=== PATIENT | male | born 1995 | race American Indian/Alaskan Native ===

== ENCOUNTER 2021-01-06 11:07 | Emergency (ER) | payer SELFPAY ==
[2021-01-06 11:27] VITALS: BP 144/83
--- NOTE | 2021-01-06 12:12 | XRay Report ---
XR shoulder 2+V RT INDICATION / CLINICAL INFORMATION: right shoulder pain COMPARISON: None available. FINDINGS: BONES / JOINT(S): No acute fracture or subluxation. No significant arthritis. SOFT TISSUES: No significant abnormality. ADDITIONAL FINDINGS: None. IMPRESSION: No acute osseous findings in the right shoulder. Signer Name: Med Segovia MD Signed: 01/06/2021 12:07 PM Workstation Name: [id number]
--- NOTE | 2021-01-06 12:49 | Emergency Department Report ---
ED Upper Extremity Inj HPI - General Chief Complaint: Shoulder Injury Stated Complaint: SHOULDER INJURY Time Seen by Provider: 01/06/21 11:35 Source: patient Mode of arrival: Ambulatory Limitations: No Limitations - History of Present Illness Initial Comments: This is a [age]jir[age]-old male nontoxic, well nourished in appearance, no acute signs of distress presents to the ED with c/o of acute on chronic intermittent right shoulder pain 10 years. Patient stated that was heavy lifting and developed pains. Patient denies any acute injuries or trauma. Stated 10 years ago dislocated shoulder and since then has intermittent pains. Patient denies any numbness, tingling, fever, chills, nausea, vomiting, chest pain, shortness of breath, headache, stiff neck. Patient denies any joint swelling or joint redness. Patient denies decreased range of motion but has some pain. Patient denies any allergies or significant past medical history. MD Complaint: Injury to:: right, shoulder Other Extremity Injury: Shoulder: Right Severity scale (0 -10): 8 Improves With: immobilization Worsens With: movement of extremity Associated Symptoms: denies other symptoms. denies: weakness, numbness, neck p ain, suspects foreign body, nausea/vomiting, heard/felt popping sensat - Related Data Previous Rx's Medication Instructions Recorded Last Taken Type Naproxen 500 mg PO Q12H PRN #12 tablet 01/06/21 Unknown Rx ED Review of Systems ROS: Stated complaint: SHOULDER INJURY Other details as noted in HPI Comment: All other systems reviewed and negative Constitutional: denies: chills, fever Eyes: denies: eye pain, eye discharge, vision change ENT: denies: ear pain, throat pain Respiratory: denies: cough, shortness of breath, wheezing Cardiovascular: denies: chest pain, palpitations Endocrine: no symptoms reported Gastrointestinal: denies: abdominal pain, nausea, diarrhea Genitourinary: denies: urgency, dysuria Musculoskeletal: denies: back pain, joint swelling, arthralgia Skin: denies: rash, lesions Neurological: denies: headache, weakness, paresthesias Psychiatric: denies: anxiety, depression Hematological/Lymphatic: denies: easy bleeding, easy bruising ED Past Medical Hx - Past Medical History Previous Medical History?: Yes Hx Asthma: Yes - Surgical History Past Surgical History?: No - Social History Smoking Status: Never Smoker Substance Use Type: None - Medications Home Medications: Home Medications Medication Instructions Recorded Confirmed Last Taken Type Naproxen 500 mg PO Q12H PRN #12 tablet 01/06/21 Unknown Rx ED Physical Exam - General Limitations: No Limitations General appearance: alert, in no apparent distress - Head Head exam: Present: atraumatic, normocephalic - Eye Eye exam: Present: normal appearance - Neck Neck exam: Present: normal inspection, full ROM. Absent: lymphadenopathy - Respiratory Respiratory exam: Absent: respiratory distress - Cardiovascular Cardiovascular Exam: Present: regular rate - Extremities Exam Extremities exam: Present: normal inspection, full ROM, normal capillary refill. Absent: tenderness, joint swelling - Expanded Upper Extremity Exam Right General: Present: normal inspection Shoulder Exam: Present: normal inspection, full ROM (with some pain). Absent: tenderness, swelling, abrasion, laceration, ecchymosis, deformity, crepidus, dislocation, erythema, tenderness over AC joint Upper Arm exam: Present: normal inspection, full ROM. Absent: tenderness, swelling Elbow exam: Present: normal inspection, full ROM. Absent: tenderness, swelling Forearm Wrist exam: Present: normal inspection, full ROM. Absent: tenderness, swelling Hand Wrist exam: Present: normal inspection, full ROM. Absent: tenderness, swelling Vascular: Present: normal capillary refill. Absent: vascular compromise (Neurovascular within normal limits) - Back Exam Back exam: Present: normal inspection, full ROM. Absent: tenderness, CVA tenderness (R), CVA tenderness (L), muscle spasm, paraspinal tenderness, vertebral tenderness, rash noted - Neurological Exam Neurological exam: Present: alert, oriented X3, normal gait - Psychiatric Psychiatric exam: Present: normal affect, normal mood - Skin Skin exam: Present: warm, dry, intact, normal color. Absent: rash ED Course Vital Signs 01/06/21 11:22 Temperature 98.9 F Pulse Rate 77 Respiratory 20 Rate Blood Pressure 144/83 Blood Pressure 144/83 [Right] O2 Sat by Pulse 99 Oximetry - Reevaluation(s) Reevaluation #1: 01/06/21 12:49 Patient is speaking in full sentences with no signs of distress noted. ED Medical Decision Making - Radiology Data [facility] [address] [place] [address] XRay Report Signed Patient: MARQUIS BROOKE BETH MR#: [id number] : 1995 Acct:[id number] Age/Sex: 25 / M ADM Date: 01/06/21 Loc: ED Attending Dr: Ordering Physician: ABBY PRATHER NP Date of Service: 01/06/21 Procedure(s): XR shoulder 2+V RT Accession Number(s): [id number] cc: ABBY PRATHER NP Fluoro Time In Minutes: XR shoulder 2+V RT INDICATION / CLINICAL INFORMATION: right shoulder pain COMPARISON: None available. FINDINGS: BONES / JOINT(S): No acute fracture or subluxation. No significant arthritis. SOFT TISSUES: No significant abnormality. ADDITIONAL FINDINGS: None. IMPRESSION: No acute osseous findings in the right shoulder. Signer Name: Breanne Segovia MD Signed: 01/06/2021 12:07 PM Workstation Name: [email or web address] Transcribed By: GILMAR Dictated By: BREANNE SEGOVIA MD Electronically Authenticated By: BREANNE SEGOVIA MD Signed Date/Time: 01/06/21 120 DD/ 05 TD/TT: - Medical Decision Making This is a 25-year-old male that presents with right shoulder strain. Patient is stable and was examined by me. I referred patient to an orthopedic doctor for further evaluation for possible MRI. X-ray has been obtained and dictated by the radiologist. Patient is notified of the x-ray report with noted by the patient. Patient does have normal ROM with some pain and no joint swelling. No ecchymosis. no joint redness or swelling. Not warm to touch. No signs of cellulites present. Patient was instructed to RICE therapy. Patient is discharged with Motrin. At time of discharge, the patient does not seem toxic or ill in appearance. No acute signs of distress noted. Patient agrees to discharge treatment plan of care. No further questions noted by the patient. Critical care attestation.: If time is entered above; I have spent that time in minutes in the direct care of this critically ill patient, excluding procedure time. ED Disposition Clinical Impression: Right shoulder strain Qualifiers: Encounter type: initial encounter Qualified Code(s): S46.911A - Strain of unspecified muscle, fascia and tendon at shoulder and upper arm level, right arm, initial encounter Disposition: 01 HOME / SELF CARE / HOMELESS Is pt being admited?: No Does the pt Need Aspirin: No Condition: Stable Instructions: RICE Therapy for Routine Care of Injuries, [id number]-Sgey Additional Instructions: Follow-up with a orthopedic doctor in 3-5 days or if symptoms worsen and continue return to emergency room as soon as possible. No physical activity that extremity until cleared by orthopedic doctor Prescriptions: Naproxen 500 mg PO Q12H PRN #12 tablet PRN Reason: Pain , Severe (7-10) Referrals: PRIMARY CAREMD [Referring] - 3-5 Days COLEMAN LIMA MD [Staff Physician] - 3-5 Days Forms: Work/School Release Form(ED) Time of Disposition: 12:54
== END 2021-01-06 13:00 | disposition left against medical advice (07) ==
LOC: ED 11:07
DX: S46.911A Strain of unspecified muscle, fascia and tendon at shoulder and upper arm level, right arm, initial encounter (principal); J45.909 Unspecified asthma, uncomplicated; Z79.899 Other long term (current) drug therapy; X50.0XXA Overexertion from strenuous movement or load, initial encounter; Y93.89 Activity, other specified; Y92.89 Other specified places as the place of occurrence of the external cause; Y99.8 Other external cause status
CPT/HCPCS: 99283